=== PATIENT | male | born 1990 | race African-American/Black ===

== ENCOUNTER 2017-02-03 09:59 | Emergency (ER) | payer OTHER ==
[~2017-02-03] VITALS: Ht 175.3 cm; Wt 99.8 kg
[~2017-02-03 09:59] MED LIST: KEFLEX500 MG PO; MOBIC15 MG PO; SINGULAIR 10 MG10 M1 PO
[2017-02-03 10:56] LABS: ABSOLUTE NEUTROPHILS 5.2 thou/uL (1.4-8.2); BASOPHILS 0.9 % (0.0-2.0); EOSINOPHILS 2.6 % (0.0-3.0); HEMATOCRIT 41.6 % (42.0-52.0); HEMOGLOBIN 13.9 gm/dL (14.0-18.0); LYMPHOCYTES 25.1 % (24.0-44.0); MCH 28.7 pg (26.0-34.0); MCHC 33.5 g/dL (28.0-37.0); MCV 85.6 fL (80.0-100.0); MONOCYTES 6.5 % (1.0-8.0); PLATELET COUNT 241 thou/uL (150-400); POLYS 64.9 % (36.0-66.0); RBC 4.86 mil/uL (4.50-6.00); RDW 13.9 % (10.5-14.5)
[2017-02-03 11:04] LABS: CALCIUM 8.8 mg/dL (8.5-10.1); CREATININE 0.9 mg/dL (0.7-1.3); MANUAL DIFF NO
[2017-02-03 11:09] LABS: ALBUMIN 4.1 g/dL (3.4-5.0); APTT 25.7 Seconds (24.5-32.8); PROTIME 10.5 Seconds (9.3-11.4); TOTAL BILIRUBIN 0.3 mg/dL (<0.1-1.0); TOTAL PROTEIN 8.3 g/dL (6.4-8.2)
[2017-02-03] MEDS ORDERED: NAPROSYN500 MG PO (11:56)
[2017-02-03] MEDS ORDERED: TRAMADOL 50 MG50 MG PO (11:56)
[2017-02-03 12:57] VITALS: BP 149/73
== END 2017-02-03 12:59 | disposition home or self-care (01) ==
LOC: ER 09:59
PROVIDERS: Emergency Medicine
DX: S16.1XXA Strain of muscle, fascia and tendon at neck level, initial encounter (principal); S20.211A Contusion of right front wall of thorax, initial encounter; M25.512 Pain in left shoulder; R10.9 Unspecified abdominal pain; F10.99 Alcohol use, unspecified with unspecified alcohol-induced disorder; V89.2XXA Person injured in unspecified motor-vehicle accident, traffic, initial encounter; Y93.I9 Activity, other involving external motion; Y92.481 Parking lot as the place of occurrence of the external cause; Y99.8 Other external cause status